=== PATIENT | female | born 1965 | race Caucasian/White ===

== ENCOUNTER 2020-11-21 10:22 | Emergency (ER) | payer SELFPAY ==
[2020-11-21] MEDS: diphenhydrAMINE 25 MG Cap ONE (10:49)
[2020-11-21] MEDS: predniSONE 20 MG Tab ONE (10:49)
[2020-11-21] MEDS: diphenhydrAMINE 25 MG Cap PO ONE (10:49)
[2020-11-21] MEDS: predniSONE 20 MG Tab PO ONE (10:49)
--- NOTE | 2020-11-21 10:55 | EDM.PDOC ---
ED HPI GENERAL MEDICAL PROBLEM - General Chief Complaint: Allergic Reaction Stated Complaint: ALLERGIC REACTION Time Seen by Provider: 11/21/20 10:30 Source of Information: Reports: Patient History Limitations: Reports: No Limitations - History of Present Illness INITIAL COMMENTS - FREE TEXT/NARRATIVE: 55 year old female presents with rash, redness, itching, to face and neck after using a new face cream last night. Denies pain but c/o itching. Denies any airway issues, n/v/d, COFFEY, CP, SOB. 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 History: hysterectomy, tubal ligation , D&C Musculoskeletal History: Reports: Other (See Below) Other Musculoskeletal History: broken arm Social & Family History - Tobacco Use Years of Tobacco use: 20 Packs/Tins Daily: 0.5 ED ROS ALLERGIC REACTION - Review of Systems Review Of Systems: See Below Constitutional: Reports: No Symptoms HEENT: Reports: No Symptoms Respiratory: Reports: No Symptoms Cardiovascular: Reports: No Symptoms Endocrine: Reports: No Symptoms GI/Abdominal: Reports: No Symptoms : Reports: No Symptoms Musculoskeletal: Reports: No Symptoms Skin: Reports: Pruritis, Rash, Erythema, Urticaria Neurological: Reports: No Symptoms Psychiatric: Reports: No Symptoms Hematologic/Lymphatic: Reports: No Symptoms Immunologic: Reports: No Symptoms ED EXAM GENERAL NO PERIP PULSE - Physical Exam Exam: See Below Exam Limited By: No Limitations General Appearance: Alert, No Apparent Distress Ears: Normal External Exam Nose: Normal Inspection, Normal Mucosa, No Blood Throat/Mouth: Normal Inspection, Normal Lips, Normal Teeth, Normal Gums, Normal Oropharynx, Normal Voice, No Airway Compromise Head: Atraumatic Neck: Non-Tender, Full Range of Motion, Other (hives visible on neck) Respiratory/Chest: No Respiratory Distress, Lungs Clear, Normal Breath Sounds Cardiovascular: Normal Peripheral Pulses, Regular Rate, Rhythm, No Edema, No JVD GI/Abdominal: Non-Tender Back Exam: Normal Inspection, Full Range of Motion Extremities: Normal Inspection, Normal Range of Motion, Non-Tender, No Pedal Edema, Normal Capillary Refill Neurological: Alert, Oriented, Normal Cognition, Normal Gait Psychiatric: Normal Affect, Normal Mood Skin Exam: Warm, Dry, Intact, Rash Lymphatic: No Adenopathy Course - Vital Signs Last Recorded V/S: Last Vital Signs Temp 99.1 F 11/21/20 10:24 Pulse 68 11/21/20 10:24 Resp 16 11/21/20 10:24 BP 138/85 11/21/20 10:24 Pulse Ox 100 11/21/20 10:24 - Orders/Labs/Meds Meds: Medications Discontinued Medications Generic Name Dose Route Start Last Admin Trade Name Nico PRN Reason Stop Dose Admin Diphenhydramine HCl 25 mg 11/21/20 10:43 11/21/20 10:49 Diphenhydramine 25 Mg Cap PO 11/21/20 10:44 25 mg ONETIME ONE Administration Diphenhydramine HCl Confirm 11/21/20 10:55 11/21/20 10:49 Diphenhydramine 25 Mg Cap Administered 11/21/20 10:56 Not Given Dose 25 mg .ROUTE .STK-MED ONE Prednisone 40 mg 11/21/20 10:44 11/21/20 10:49 Prednisone 20 Mg Tab PO 11/21/20 10:45 40 mg ONETIME ONE Administration Prednisone Confirm 11/21/20 10:56 11/21/20 10:49 Prednisone 20 Mg Tab Administered 11/21/20 10:57 Not Given Dose 40 mg .ROUTE .STK-MED ONE Departure - Departure Time of Disposition: 10:53 Disposition: Home, Self-Care 01 Condition: Good Clinical Impression: Allergic reaction Qualifiers: Encounter type: initial encounter Qualified Code(s): T78.40XA - Allergy, unspecified, initial encounter - Discharge Information *PRESCRIPTION DRUG MONITORING PROGRAM REVIEWED*: Not Applicable *COPY OF PRESCRIPTION DRUG MONITORING REPORT IN PATIENT NICOLE: Not Applicable Prescriptions: predniSONE [Prednisone] 20 mg PO DAILY 4 Days #8 tablet Instructions: Hives Referrals: PCP,None [Primary Care Provider] - Forms: ED Department Discharge Additional Instructions: Take the prednisone in the morning with breakfast for 4 days. Start taking a 24 hour allergy pill once daily. Benadryl 25-50 mg every 6 hours, if this makes you too sleepy, then take at bedtime. Return to ED for any increased or new concerning symptoms. Follow up with your PMD as needed. Sepsis Event Note (ED) - Evaluation Sepsis Screening Result: No Definite Risk - Focused Exam Vital Signs: Vital Signs Temp Pulse Resp BP Pulse Ox 11/21/20 10:24 99.1 F 68 16 138/85 100
== END 2020-11-21 11:03 | disposition home or self-care (01) ==
LOC: LB.ED 10:22
DX: L50.9 Urticaria, unspecified (principal); T49.8X5A Adverse effect of other topical agents, initial encounter
CPT/HCPCS: 99283; A9270-GY; J7512